=== PATIENT | female | born 1995 | race Caucasian/White ===

== ENCOUNTER 2017-05-15 09:36 | Day surgery (SDC) | payer OTHER, SELFPAY ==
[2017-05-15] VITALS (7 sets, daily range): BP systolic 121–129; BP diastolic 68–78; PULSE 86–115; RESP 16–18; TEMP 36.6–37.2; O2SAT 97–100; BMI 25.3
[2017-05-15 10:04] LABS: Internal QC Validated? YES +Cl - CLEAR BKGD; Pregnancy, Urine Negative Negative
[2017-05-15] MEDS: Cefazolin 2 GM in 0.9% Normal Saline 100 ML IV (11:13)
--- NOTE | 2017-05-15 11:25 | RAD_ITS ---
STUDY: X-RAY - RIGHT ANKLE REASON FOR EXAM: Female, 21 years old. ORIF. TECHNIQUE: 2 view(s) of the ankle. COMPARISON: None. FINDINGS: The patient is status post open reduction and fixation of the distal fibular fracture utilizing screws and sideplate fixation device. 2 screws are transfixing the medial malleolus. There is good alignment. Normal visualized talus and calcaneus. The visualized subtalar, talonavicular, calcaneocuboid and tarsal articulations are normal. Soft tissue swelling. RAD/Ankle 2 Views IMPRESSION: Status post ORIF of the distal fibular fracture and the medial malleolar fracture. Postoperative soft tissue changes. Electronically Signed: Ayden Jacobson MD at 13:01 EST Tel [phone], Service support ,
--- NOTE | 2017-05-15 12:44 | PCM.IMDPSTOP ---
Problem List (1) Ankle fracture, bimalleolar, closed Status: Acute Immediate Post-Op Note Date of Procedure: 05/15/17 Primary Surgeon/Physician: Lexi Charles, associate civil engineer: Yariel Diez Post-Operative Diagnosis: Bimalleolar ankle fracture, right Surgery/Procedure Performed:: ORIF Bimalleolar fracture, right Description of Surgical Findings:: Consistent with diagnosis Estimated Blood Loss: <20cc Specimen's removed: none Type of Anesthesia:: General ASA Class: ASA1 Normal Healthy Patient - Admit VTE Documentation VTE Mechan Device Prophylaxis: SCD's VTE Pharm Prophylaxis ordered?: Yes
--- NOTE | 2017-05-15 12:47 | OP.PN_ITS ---
Problem List (1) Ankle fracture, bimalleolar, closed Status: Acute Immediate Post-Op Note Date of Procedure: 05/15/17 Primary Surgeon/Physician: Lexi Charles, metal solderer: Yariel Diez Post-Operative Diagnosis: Bimalleolar ankle fracture, right Surgery/Procedure Performed:: ORIF Bimalleolar fracture, right Description of Surgical Findings:: Consistent with diagnosis Estimated Blood Loss: <20cc Specimen's removed: none Type of Anesthesia:: General ASA Class: ASA1 Normal Healthy Patient - Admit VTE Documentation VTE Mechan Device Prophylaxis: SCD's VTE Pharm Prophylaxis ordered?: Yes
[2017-05-15] MEDS: oxyCODONE 5 MG Tablet 10 MG PO (13:49)
== END 2017-05-15 14:40 | disposition home or self-care (01) ==
LOC: SDC 09:37 → AC 09:39
PROVIDERS: Anesthesiology; Family Provider Family Medicine; PCP Family Medicine; Visit Provider Podiatrist Foot & Ankle Surgery
PROC: (CPT 27814; principal; 2017-05-15 10:40)
DX: S82.841A Displaced bimalleolar fracture of right lower leg, initial encounter for closed fracture (principal); W10.9XXA Fall (on) (from) unspecified stairs and steps, initial encounter; Y93.89 Activity, other specified; Y92.9 Unspecified place or not applicable; F41.9 Anxiety disorder, unspecified; Z79.899 Other long term (current) drug therapy
CPT/HCPCS: 27814; 64450; 73600; 76000; 81025; J7120; J2405

== ENCOUNTER 2017-05-21 15:18 | Inpatient (IN) | payer OTHER, SELFPAY ==
[2017-05-21 16:00] VITALS: BP 132/85; PULSE 92; RESP 16; TEMP 36.6; O2SAT 98
[2017-05-21 16:10] VITALS: PULSE 90
[2017-05-21 16:31] VITALS: BMI 25.5
[2017-05-21 16:32] VITALS: BMI 25.5
--- NOTE | 2017-05-21 16:32 | EKG12_ITS ---
Test Reason : ADMISSION Blood Pressure : / mmHG Vent. Rate : 086 BPM Atrial Rate : 086 BPM P-R Int : 156 ms QRS Dur : 090 ms QT Int : 352 ms P-R-T Axes : 026 096 034 degrees QTc Int : 421 ms Normal sinus rhythm Normal ECG No previous ECGs available Confirmed by KAREN GOMEZ, YARELIS ([id number]), videotape editor JANIE GONZALES ([id number]) on 05/23/2017 1:09:05 PM Referred By: Carline Kinney Confirmed By:YARELIS JONES MD
--- NOTE | 2017-05-21 17:09 | HP.PCM_ITS ---
Problem List (1) Pulmonary embolism Status: Acute (2) Ankle fracture, bimalleolar, closed Status: Chronic (3) Anxiety Status: Chronic History of Present Illness Date of Admission: 05/21/17 Chief Complaint: Chest pain The patient is a 21 year old F who recently underwent a left ankle fracture repair with Dr. Charles (podiatry) who presented to the ER in [place] today for left sided chest pain. In the ER she had an elevated D dimer and CTA of the chest revealed bilateral PE's. EKG had nonspecific changes, she was somewhat tachycardic. She was given a dose of lovenox. She was then transferred to [facility] as she had her surgery here. The patient had the ankle surgery 6 days ago. She was sent home on baby aspirin daily. She had no problems until this AM, she woke up about 0830 with left sided chest pain and noted pain with deep breathing. She did not note any changes in swelling of her lower extremities. She has no shortness of breath or palpitations. She has been on an estrogenic oral contraceptive. She has no prior hx of DVT/PE, and she denies any family history of blood clots - parents present also deny this. 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 Denies: Chest Pressure, Chest Tightness, Edema, Heaviness, Light Headedness, Palpitations, Syncope Respiratory: Reports: Pleuritic Pain. Denies: Cough, Shortness of breath at rest, Sputum production Gastrointestinal: Denies: Abdominal Pain, Nausea, Vomiting Genitourinary: Denies: Dysuria Musculoskeletal: Denies: Joint Pain, Joint Tenderness Skin: Denies: Rash, Wounds Neurological: Denies: Numbness, Tingling, Focal weakness Psychiatric: Reports: Anxiety. Denies: Depression, Homicidal Ideations, Suicidal Ideations Hematologic/ Lymphatic: Denies: Easy Bruising, Easy Bleeding VTE Information - Inpt Only VTE Present on Admission: Yes VTE Mechan Device Prophylaxis: None VTE Pharm Prophylaxis ordered?: Yes Patient Problems: Active and Suspected Problems Pulmonary embolism (Acute) - Physical Exam General: Alert, Oriented x3, Cooperative HEENT: Atraumatic, PERRLA, EOMI, Normocephalic Oral: - - blue staining of gums from doxy Neck: Supple, No JVD, Negative Carotid Bruits Lungs: Clear to auscultation, Normal air movement Cardiovascular: Regular rate, No murmurs Abdomen: Bowel Sounds Present, Soft, Non Tender Extremities: No edema, Capillary Refill Less than 3 Seconds Skin: No rashes, No breakdown Musculoskeletal: No Tenderness to Palpation of Joints or Extremities Neurological: Cranial nerves II-XII grossly intact Psych/Mental Status: Normal Affect, Appropriate, Alert and oriented to time, place, person, mood and affect Vital Signs Temp Pulse Resp BP Pulse Ox 97.9 F 90 16 132/85 H 98 05/21/17 16:00 05/21/17 16:10 05/21/17 16:00 05/21/17 16:00 05/21/17 16:00 Oxygen Delivery Method Room Air Weight: 71.758 kg Body Mass Index (BMI) 25.5 Assessment/Plan Active and Suspected Problems Pulmonary embolism (Acute) 1. Acute provoked bilateral PEs - left sided chest pain sudden on set this AM following right ankle repair [address] Charles in a patient on estradiol oral contraceptive - this will be discontinued, only was on Baby aspirin post op for dvt ppx. CTA with BL PEs and left sided possible pulmonary infarct. Continue lovenox BID. Patient will be maintained on tele. Transition to PO tomorrow. Echocardiogram in AM. EKG pending, reported nonspecific ST changes from [place]. No family hx of clots, no personal hx of clots. She is no longer tachy. No SOB. 2. Anxiety - on paxil This patient was seen by Ant Hagen PA-C under the supervision of Doctor Kinney.
[2017-05-21] MEDS: Acetaminophen 325 MG Tablet 650 MG PO (18:55)
[2017-05-21 19:00] VITALS: PULSE 92
[2017-05-21] MEDS: Enoxaparin 80 MG/0.8 ML Syringe 70 MG SC (21:45)
[2017-05-21 22:00] VITALS: BP 127/72; PULSE 84; RESP 16; TEMP 36.9; O2SAT 100
[2017-05-21 23:00] VITALS: PULSE 91
[2017-05-21] MEDS: Zolpidem Tartrate 5 MG Tablet PO (23:35)
[2017-05-22 03:00] VITALS: PULSE 79
[2017-05-22 04:00] VITALS: BP 114/59; PULSE 89; RESP 16; TEMP 36.8; O2SAT 98
[2017-05-22] MEDS: Enoxaparin 80 MG/0.8 ML Syringe 70 MG SC (05:52)
--- NOTE | 2017-05-22 05:55 | ECHOCS_ITS ---
Reason For Study: Emboli Procedure This was a 2D Doppler, Color Flow transthoracic echocardiogram. Exam performed portable in patient room. Left Ventricle Normal LV size. Left ventricular systolic function is normal. The estimated ejection fraction is 60 %. No regional wall motion abnormalities noted. Right Ventricle Normal RV size. Normal systolic function. Atria Normal left atrium. Normal right atrium. Mitral Valve Normal mitral valve. Mild (1+) eccentric mitral valve insufficiency. Tricuspid Valve Normal tricuspid valve. Mild tricuspid valve insufficiency. Aortic Valve Normal aortic valve. Trisinus/trileaflet aortic valve. Pulmonic Valve Normal pulmonic valve. Great Vessels Normal aortic root. The pulmonary artery is normal size. Normal inferior vena cava. Pericardium/Pleural No pericardial effusion. MMode/2D Measurements & Calculations LVIDd: 4.2 cm IVSd: 1.0 cm Ao root diam: 2.5 cm LVIDs: 2.4 cm LVPWd: 0.93 cm LA dimension: 3.5 cm RVDd: 3.4 cm FS: 41.6 % LAV(MOD-bp): 29.9 ml LA A4 area: 15.2 cm2 RA A4 area: 13.6 cm2 LAV(MOD-bp) Indexed: 16.5 ml/m2 LAV(MOD-sp2): 21.0 ml LAV(MOD-sp4): 36.0 ml Doppler Measurements & Calculations MV E max clark: 85.7 cm/sec Lat Peak E' Clark: 16.5 cm/sec Med Peak E' Clark: 11.2 cm/sec MV A max clark: 64.7 cm/sec E/E' lat: 5.2 E/E' med: 7.7 MV E/A: 1.3 Ao V2 max: 124.0 cm/sec LV V1 max: 107.2 cm/sec PA V2 max: 85.7 cm/sec Ao max P.2 mmHg LV V1 max P.6 mmHg Ao V2 mean: 88.6 cm/sec Ao mean P.4 mmHg Ao V2 VTI: 24.3 cm TR max clark: 161.8 cm/sec TR max P.5 mmHg Interpretation Summary Normal LV size. Left ventricular systolic function is normal. The estimated ejection fraction is 60 %. Mild tricuspid valve insufficiency. Mild (1+) eccentric mitral valve insufficiency. Ordering Physician: Ant Hagen Referring Physician: Elliott Grossman Performed By: Supriya Isidro, LYLE, RVT
[2017-05-22 06:03] LABS: Absolute Lymphocyte Count 1.36 X10^3/ul (0.83-4.51); Basophil# 0.05 X10^3/uL; Eosinophil# 0.13 X10^3/uL; Eosinophils% 2.5 % (0-5); Hematocrit 37.9 % (37-47); Hemoglobin 12.9 g/dl (12.0-15.0); Lymphocyte # 1.36 X10^3/ul (4.0); Lymphocyte % 26.6 % (19-41); Mean Corpuscular Hgb 30.7 pg (27.0-32.0); Mean Corpuscular Volume 90.2 fL (81-99); Mean Platelet Vol. 9.1 fl (6.2-12.0); Monocyte# 0.52 X10^3/uL; Monocyte% 10.2 % (0-10); Neutrophil # 3.04 X10^3/uL (2.7-7.7); Neutrophil % 59.5 % (47-70); Platelet Count 279 K/mm3 (150-450); RBC Distribution Width CV 11.9 % (11.6-14.6); RBC Distribution Width SD 38.5 fl (35.1-43.9); White Blood Count 5.1 K/mm3 (4.4-11.0)
[2017-05-22 06:05] LABS: POSITIVE COUNT NO; POSITIVE DIFFERENTIAL NO; POSITIVE MORPHOLOGY NO
[2017-05-22 06:34] LABS: ALB/GLOB Ratio 0.8 RATIO (0.9-2.4); AST(SGOT) 18 U/L (15-37); Alanine Aminotransfer ALT/SGPT 27 U/L (13-56); Albumin, Serum 3.2 g/dL (3.2-5.0); Alkaline Phosphatase 83 U/L (45-117); Anion Gap 7 (5-15); BUN 9 mg/dL (7-18); BUN/Creat Ratio 14.7 RATIO (10-20); Calcium,Total 9.2 mg/dL (8.5-10.1); Chloride 105 mmol/L (98-107); Creatinine, Serum 0.61 mg/dL (0.55-1.02); EST Glomerular Filtration Rate 127 mL/min (>60); Est Glom Filt Rate - Afr Amer 154 mL/min (>60); Estimated Creatinine Clearance 134.28 ml/min; Globulin 4.1 g/dL (2.2-4.2); Glucose 95 mg/dL (74-106); Potassium 4.6 mmol/L (3.5-5.1); Protein, Total 7.3 g/dL (6.4-8.2); Sodium Level 140 mmol/L (136-145)
[2017-05-22 07:06] VITALS: O2SAT 97
[2017-05-22 07:25] VITALS: PULSE 86
[2017-05-22 10:00] VITALS: BP 121/61; PULSE 81; RESP 16; TEMP 36.7; O2SAT 96
[2017-05-22] MEDS: PARoxetine 10 MG Tablet PO (10:04)
--- NOTE | 2017-05-22 10:14 | CASEMGMT ---
Face to Face with patient for initial transition planning/care coordination assessment. JOSEE LOZA introduced self and role at [facility], pt voices understanding and consents to assessment at this time. Pt is sitting up in bed in no distress at this time. Pt A/O x4 at this time and answers all questions appropriately at this time. Care providers, pharmacy, and demographics verified. See attached link. Per Amelia HILL, pt to be sent home on [employer]. Script e-scribed to [facility] at this time and this JOSEE LOZA placed call to check on co-pay. Per [employer], co-pay is $40 at this time. Pt given [employer] $0 co-pay card and instructed to call and activate and then present to pharmacy, voices understanding. Pt voices no further concerns/needs at this time. Advised pt to ask for CM if any further questions/concerns/needs arise, voices understanding. [place] JOSEE LOZA
[2017-05-22 11:06] VITALS: PULSE 78
--- NOTE | 2017-05-22 11:25 | PCM.DC ---
- Discharge Diagnoses Current Active Problems: Current Active and Chronic Problems Pulmonary embolism (Acute) Anxiety (Chronic) You will use the following diet at home:: No restrictions Your food should be the consistency of: Regular Your liquids should be the consistency of: Regular/Thin Discharge Activity: Return to Normal Activity Allergies/Adverse Reactions: Allergies doxycycline Allergy (Verified 05/21/17 16:48) Hives Medications to take at Discharge Oxycodone HCl/Acetaminophen [Percocet 5-325] 1 tablet PO Q4H PRN PRN 05/14/17 Paroxetine HCl [Paxil] 10 mg PO DAILY 05/14/17 Acetaminophen [Tylenol Tablet] 650 mg PO Q6H PRN PRN tablet 05/22/17 Rivaroxaban [Xarelto] 15 mg PO BID #42 tab 05/22/17 Rivaroxaban [Xarelto] 20 mg PO DAILY #30 tab 05/22/17 The following prescriptions were given: Rivaroxaban [Xarelto] 15 mg PO BID #42 tab Rivaroxaban [Xarelto] 20 mg PO DAILY #30 tab Primary Care Physician: Elliott Grossman III, MD [Primary Care Provider] - Please follow up with your Primary Care Physician in: 2 weeks Please Follow Up With: OBGYN - Discuss control options When: 1-2 weeks Please Follow Up With: Podiatry When: Maintain your follow prior follow up schedule Proposed Discharge Date: 05/22/17
--- NOTE | 2017-05-22 14:09 | PCM.DC.SUM ---
Discharge Date and Diagnosis - Problem List Patient Problems: Active and Suspected Problems Pulmonary embolism (Acute) Date of Admission: 05/21/17 Date of Discharge: 05/22/17 - Primary Discharge Diagnosis Active and Suspected Problems Chest pain 2/2 Bilateral Pulmonary emboli (Acute) Recent right ankle fracture repair Hypercoagulable state 2/2 trauma, surgery, oral contraceptive Anxiety - Secondary Discharge Diagnosis Chronic Problems Ankle fracture, bimalleolar, closed (Chronic) Anxiety (Chronic) Hospital Course and Treatment Imaging Results: CTA chest obtained at [facility] showing bilateral PE's and a possible pulmonary infarct Echocardiogram:Interpretation Summary Normal LV size. Left ventricular systolic function is normal. The estimated ejection fraction is 60 %. Mild tricuspid valve insufficiency. Mild (1+) eccentric mitral valve insufficiency. Ultrasound BL lower extremities without DVTs Operations: None Procedures: 2-D Echocardiogram Summary of Care Provided: Physical exam on day of discharge: General: Resting comfortably NAD Psych: A/Ox3 normal affect HEENT: PEARRLA AT NC Neck: Supple NT CV: RRR no m/t/r/g/h Resp: CTA Abd: [id number] Soft NT no guarding or rigidity Ext: DP2+= no edema Skin: W/D normal turgor Lymph/Heme: No active bleeding or adenopathy Neuro: CN2-12 intact Hospital course: The patient is a 21 year old F who developed left lower chest pain in the morning prior to presentation, presented to the ER and was found to have bilateral PE's and a possible pulmonary infarct. She had undergone right ankle fracture repair surgery about 6 days prior with podiatry Dr. Charles and since had been on aspirin for DVT ppx. She had been taking an estradiol oral contraceptive. She had no personal or family hx of blood clots or clotting disorders. She was transferred from [facility] to [place] as she had surgery here. She had no SOB or increased O2 demand. She was placed on therapeutic lovenox. The following morning she underwent an echocardiogram with an EF of 60% and mild TVI, 1+ MVI. Ultrasound of her lower extremities did not reveal any DVTs. She was placed on xarelto. We recommended stopping her control as it was estradiol based and using alternative control like condoms or a diaphragm in the meantime, and recommended to discuss alternatives with her OBGYN. We also talked to her about following up with oncology for future hypercoagulable workup as we were concerned that her ultrasound did not show a DVT source. With acute PEs, a hypercoag panel was deferred here. 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 This patient was seen by Ant Hagen PA-C under the supervision of Dr. Kinney [] Discharge Diet: No Restrictions Discharge Activity: Return to Normal Activity Home Medications: Medications to take at Discharge Oxycodone HCl/Acetaminophen [Percocet 5-325] 1 tablet PO Q4H PRN PRN 05/14/17 Paroxetine HCl [Paxil] 10 mg PO DAILY 05/14/17 Acetaminophen [Tylenol Tablet] 650 mg PO Q6H PRN PRN tablet 05/22/17 Rivaroxaban [Xarelto] 15 mg PO BID #42 tab 05/22/17 Rivaroxaban [Xarelto] 20 mg PO DAILY #30 tab 05/22/17 Following Prescrptions Were Given to Patient: Rivaroxaban [Xarelto] 15 mg PO BID #42 tab Rivaroxaban [Xarelto] 20 mg PO DAILY #30 tab Primary Care Physician: Elliott Grossman III, MD [Primary Care Provider] - Please follow up with your Primary Care Physician in: 2 weeks Please Follow Up With: OBGYN - Discuss control options When: 1-2 weeks Please Follow Up With: Podiatry When: Maintain your follow prior follow up schedule Disposition: Home Minutes spent on discharge:: 35 Patient Condition:: Stable Meaningful Use Info Meaningful Use Diagnoses (Choose all that apply): VTE - VTE Anticoag overlap given w/in hospital stay or rx'd at dc?: No Pt receive overlap for 5 days?: No Reason overlap not ordered, prescribed, or given for 5 days: Treatment Not Indicated
== END 2017-05-22 14:42 | disposition home or self-care (01) | DRG 176 ==
PROVIDERS: Physician Assistant; Admitting Provider Internal Medicine; Family Provider Family Medicine; PCP Family Medicine; Visit Provider Internal Medicine
DX: I26.99 Other pulmonary embolism without acute cor pulmonale (principal); F41.9 Anxiety disorder, unspecified; S82.841D Displaced bimalleolar fracture of right lower leg, subsequent encounter for closed fracture with routine healing; Z79.3 Long term (current) use of hormonal contraceptives
CPT/HCPCS: 36415; 80053; 85025; 93005; 93306; 93970